=== PATIENT | female | born 1950 | race Asian ===

== ENCOUNTER 2025-01-04 09:05 | Emergency (ER) | payer MEDICARE, OTHER ==
[~2025-01-04] VITALS: Ht 157.5 cm; Wt 61.3 kg
[2025-01-04] MEDS ORDERED: LISINOPRIL20 MG PO (09:24)
[2025-01-04] MEDS ORDERED: CLONIDINE HCL0.2 MG PO (10:06)
[2025-01-04 10:24] VITALS: BP 145/87
== END 2025-01-04 10:20 | disposition home or self-care (01) ==
LOC: ED 09:05
DX: I16.0 Hypertensive urgency (principal); I10 Essential (primary) hypertension; Z79.899 Other long term (current) drug therapy; Z88.5 Allergy status to narcotic agent; Z88.8 Allergy status to other drugs, medicaments and biological substances
CPT/HCPCS: 99284

== ENCOUNTER 2025-01-06 10:24 | Emergency (ER) | payer MEDICARE, OTHER ==
[~2025-01-06] VITALS: Ht 157.5 cm; Wt 61.3 kg
--- OUTSIDE RECORDS SUMMARY | ~2025-01-06 | XMS | Continuity of Care Document ---
Demographics + + + | Address | [address] | | | [place] [address] | + + + | Preferred Language | Unknown | + + + | Marital Status | | + + + | Sikh Affiliation | Unknown | + + + | Race | | + + + | Ethnic Group | Unknown | + + + Author + + + | Author | [facility] | + + + | Organization | [facility] | + + + | Address | [address] | | | [place] [address] | + + + | Phone | | + + + Care Team Providers + + + + | Care Customer Support Specialist Name | Role | Phone | + + + + Unavailable | Unavailable | + + + + Unavailable | Unavailable | + + + + Allergies No information. Encounters No information. Functional Status No information. Immunizations No information. Medications + + + + | date | description | facility | + + + + | 2024-12-19 00:00 | chlorthalidone | [facility] | | | | Center | + + + + | 2024-12-19 00:00 | chlorthalidone 25 MG Oral | [facility] | | | Tablet | Center | + + + + Problems + + + + | date | description | facility | + + + + | (no date) | Postherpetic neuralgia | [facility] | | | | Center | + + + + | (no date) | Chronic dryness of both | [facility] | | | eyes | Center | + + + + | (no date) | Otalgia, right ear | [facility] | | | | Center | + + + + | (no date) | Tinnitus, right ear | [facility] | | | | Center | + + + + | (no date) | Essential hypertension | [facility] | | | | Center | + + + + | (no date) | Skin lesion | [facility] | | | | Center | + + + + | (no date) | Acute pain of left | [facility] | | | shoulder | Center | + + + + | (no date) | Adhesive capsulitis of | [facility] | | | left shoulder | Center | + + + + | (no date) | Pain of left lower | [facility] | | | extremity | Center | + + + + | (no date) | Unspecified symptoms and | [facility] | | | signs involving general | Center | | | sensations and perceptions | | + + + + | (no date) | Prediabetes | [facility] | | | | Center | + + + + | (no date) | Environmental allergies | [facility] | | | | Center | + + + + Procedures No information. Results/Labs No information. Social History + + + + | date | description | facility | + + + + | (no date) | Unknown if ever smoked | [facility] | | | | Center | + + + + | 2024-12-07 00:00 | Unknown if ever smoked | [facility] | | | | Center | + + + + Vital Signs No information."
[~2025-01-06 10:24] MED LIST: CLONIDINE HCL0.2 MG PO; LISINOPRIL20 MG PO
--- OUTSIDE RECORDS SUMMARY | 2025-01-06 10:31 | XMS ---
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 \F\ [employer] Current <UNAVAIL> PHONE: [phone] Nicole has no Care Guidelines for this patient. EDonte VISIT COUNT (12 MO.) 2 [facility] TOTAL 2 NOTE: Visits indicate total known visits. ED/UCC VISIT TRACKING (12 MO.) 01/06/2025 10:25 [facility] [place] TYPE: Emergency COMPLAINT: - ALTERED LOC 01/04/2025 09:06 [facility] [place] TYPE: Emergency COMPLAINT: - BLOOD PRESSURE PROBLEM INPATIENT VISIT TRACKING (12 MO.) No inpatient visits to display in this time frame [id number]
[2025-01-06 11:46] LABS: BASOPHILS 0.8 % (0.1-1.2); EOSINOPHILS 1.2 % (0.7-5.8); HEMATOCRIT 38.3 % (34.1-44.9); LYMPHOCYTES 22.5 % (19.3-51.7); MCH 31.7 PG (25.6-32.2); MCHC 33.9 g/dL (32.2-35.5); MCV 93.4 fL (79.4-94.8); MONOCYTES 4.6 % (4.7-12.5); NEUTROPHILS 70.7 % (34.0-71.1); PLATELET COUNT 167 K/uL (182-369)
[2025-01-06 11:55] LABS: INR 1.09 (0.80-1.30); PROTIME 13.7 Sec (11.2-14.2)
[2025-01-06 11:57] LABS: PARTIAL THROMBOPLASTIN TIME 32.5 Sec (22.9-41.3)
[2025-01-06 12:04] LABS: ALBUMIN 3.9 g/dL (3.4-5.0); ALBUMIN/GLOBULIN RATIO 1.18 (1.1-2.4); ANION GAP 11.6 (7-21); CREATININE, SERUM 0.75 mg/dL (0.55-1.02); POTASSIUM 3.6 mmol/L (3.5-5.1); PROTEIN, TOTAL 7.2 g/dL (6.4-8.2)
[2025-01-06 12:31] LABS: AMPHETAMINES, URINE NEGATIVE (NEGATIVE); BARBITURATES, URINE NEGATIVE (NEGATIVE); BENZODIAZEPINE, URINE NEGATIVE (NEGATIVE); BUPRENORPHINE, URINE NEGATIVE (NEGATIVE); CANNABINOID, URINE NEGATIVE (NEGATIVE); COCAINE, URINE NEGATIVE (NEGATIVE); ECSTASY, URINE NEGATIVE (NEGATIVE); FENTANYL, URINE NEGATIVE (NEGATIVE); METHADONE, URINE NEGATIVE (NEGATIVE); OPIATES, URINE NEGATIVE (NEGATIVE); OXYCODONE, URINE NEGATIVE (NEGATIVE); PHENCYCLIDINE, URINE NEGATIVE (NEGATIVE)
[2025-01-06 12:42] VITALS: BP 138/88
--- NOTE | 2025-01-07 07:22 | EKG ---
[facility] [address] [place], [place] [address] Signed Sinus bradycardia with premature atrial complexes Left axis deviation Incomplete right bundle branch block Possible Anterior infarct , age undetermined Abnormal ECG No previous ECGs available Confirmed by Liudmila Lai MD ([id number]) on 01/07/2025 7:22:30 AM Electronically Signed By: LIUDMILA LAI MD 01/07/25721 PATIENT NAME: ABDULAZIZ SUNG Electrocardiogram DATE OF : 54 PHYSICIAN: LIUDMILA LAI MD REPORT #: [id number] REPORT IS CONFIDENTIAL AND NOT TO BE RELEASED WITHOUT AUTHORIZATION
== END 2025-01-06 12:44 | disposition left against medical advice (07) ==
LOC: ED 10:24
PROVIDERS: Emergency Medicine
DX: R40.4 Transient alteration of awareness (principal); I10 Essential (primary) hypertension; Z79.899 Other long term (current) drug therapy; Z88.5 Allergy status to narcotic agent; Z91.048 Other nonmedicinal substance allergy status
CPT/HCPCS: 36415; 70450; 71045; 80053; 80307; 84484; 85025; 85610; 85730; 93005; 93010; 99285-25; G0480